=== PATIENT | male | born 1985 | race Caucasian/White ===

== ENCOUNTER 2024-01-21 08:08 | Outpatient (CLI) | payer OTHER, SELFPAY | END 2024-01-21 08:09 | disposition home or self-care (01) | LOC: CSHSLEEP 08:08 | PROVIDERS: ATTEND Family Medicine | DX: G47.33 Obstructive sleep apnea (adult) (pediatric) (principal); R53.83 Other fatigue; K21.9 Gastro-esophageal reflux disease without esophagitis | CPT/HCPCS: 95800 ==

== ENCOUNTER 2024-02-16 08:31 | Outpatient (CLI) | payer OTHER | END 2024-02-16 08:32 | disposition home or self-care (01) | LOC: CSHSLEEP 08:31 | PROVIDERS: ATTEND Family Medicine | DX: G47.33 Obstructive sleep apnea (adult) (pediatric) (principal); R53.83 Other fatigue; K21.9 Gastro-esophageal reflux disease without esophagitis | CPT/HCPCS: 95811 ==

== ENCOUNTER 2024-05-31 15:49 | Day surgery (SDC) | payer OTHER ==
[2024-05-31] MEDS ORDERED: Bupivacaine/Epinephrine 0.25% 30 ML VIAL ONE (16:40)
[2024-05-31] MEDS ORDERED: Fentanyl 100 MCG/2 ML VIAL ONE (17:14)
== END 2024-05-31 18:15 | disposition home or self-care (01) ==
LOC: CSHSDC 15:49
PROVIDERS: ATTEND Surgery
PROC: 0FT44ZZ Resection of Gallbladder, Percutaneous Endoscopic Approach (ICD-10-PCS; principal; 2024-05-31)
DX: K80.12 Calculus of gallbladder with acute and chronic cholecystitis without obstruction (principal); K82.8 Other specified diseases of gallbladder
CPT/HCPCS: 88304; C1889; J3010